=== PATIENT | female | born 1985 | race African-American/Black ===

== ENCOUNTER 2022-07-16 17:11 | Emergency (ER) | payer OTHER ==
[2022-07-16 17:33] VITALS: BP 127/81
[2022-07-16 17:47] LABS: RAPID STREP SCREEN Negative (Negative)
[2022-07-16] MEDS ORDERED: CHERRY SYRUP 10 ML UDC PO ONE (18:11)
[2022-07-16] MEDS ORDERED: DEXAMETHASONE 10 MG/ML VIAL PO STA (18:11)
--- NOTE | 2022-07-16 18:14 | ED Physician Documentation ---
History of Present Illness - Stated complaint Stated Complaint: THROAT PX/EAR PRESSURE - Chief complaint Chief Complaint: General - Additonal information Additional information: 36-year-old female presents emergency department for evaluation of a sore throat that began 3 days ago. No fevers. No cough or congestion. No dysphonia. No trismus. She has an uncomfortable sensation when swallowing. She went to a local walk-in clinic today where rapid strep, RSV and influenza were all negative. She was not assured by that visit therefore she presents here to the ER. Review of Systems Constitutional: denies: Fever Eyes: reports: Reviewed and negative Ears: denies: Loss of hearing, Ear pain Nose: denies: Rhinorrhea / runny nose, Congestion Throat: reports: Sore throat. denies: Dental pain / toothache Cardiac: reports: Reviewed and negative Respiratory: reports: Reviewed and negative GI: reports: Reviewed and negative : reports: Reviewed and negative PD PAST MEDICAL HISTORY - Present Medications Home Medications: Ambulatory Orders Medication Instructions Recorded Confirmed Cholecalciferol (Vitamin D3) 1,000 unit PO DAILY 07/16/22 07/16/22 [Vitamin D3] Ferrous Gluconate [Fergon] 324 mg PO DAILY 07/16/22 07/16/22 - Allergies Allergies/Adverse Reactions: Allergies Allergy/AdvReac Type Severity Reaction Status Date / Time No Known Drug Allergies Allergy Verified 07/16/22 17:24 PD ED PE NORMAL - General General: Alert and oriented X 3, No acute distress - HEENT HEENT: Atraumatic, Ears normal, Moist mucous membranes, Pharynx benign - Neck Neck: Supple, no meningeal sign. No: No adenopathy (1 mildly tender right anterior cervical lymph node.) - Cardiac Cardiac: RRR, No murmur - Respiratory Respiratory: Clear bilaterally - Abdomen Abdomen: Normal bowel sounds, Soft - Back Back: No CVA TTP, No spinal TTP - Derm Derm: Warm and dry Results - Vitals Vitals: Vital Signs - 24 hr 07/16/22 17:25 Temperature 37.4 C Heart Rate 116 H Respiratory 16 Rate Blood Pressure 127/81 H O2 Saturation 100 Oxygen O2 Source Room air - Labs Labs: Laboratory Tests 07/16/22 17:30 Group A Strep Rapid Negative PD Medical Decision Making - ED course Complexity details: reviewed results, considered differential, d/w patient ED course: This is a very well-appearing 36-year-old female that presents the emergency department for reassurance that there is nothing significantly wrong with her throat. She is seen a local walk-in clinic today for sore throat which she has had for 3 days. She tested negative for strep, RSV and influenza but she was not assured. She is wondering if she needs an endoscopy. On exam the patient appears anxious. She has however an unremarkable posterior oropharynx without erythema tonsillar exudate uvula deviation or soft palate asymmetry or swelling. She has normal phonation and swallow. I did find 1 mildly tender anterior cervical lymph node. Rapid strep is again negative. I discussed with patient likely etiology being viral. She does not feel Tylenol and ibuprofen has been helpful to control the pain therefore she will be given a single dose of Decadron. Clinically I have no suspicion for RPA or IT SERVICE MANAGER. She does not have any evidence to suggest an esophageal foreign body. Patient does admit to me that she is exceedingly anxious and her tries to keep her and the children very clean and avoid germs at all times. I discussed with patient the importance of allowing routine upper respiratory infections to run their course. I also discussed the usual emergent return precautions for worsening symptoms Departure - Departure Disposition: 01 Home, Self Care Clinical Impression: Sore throat (viral) Condition: Stable Record reviewed to determine appropriate education?: Yes Comments: Milla I suspect that your sore throat is simply due to a virus. Most of the time these run their course over about 3 to 7 days. You can gargle with warm salt water 2-3 times a day. I recommend you continue Tylenol and ibuprofen. You were given a single dose of Decadron here in the emergency department which is an anti-inflammatory which will help a lot with pain over the next 24 to 48 hours. We will notify you if your strep culture is positive but in general I expect that this will simply resolve over the next several days. Reasons to return to the emergency department would be the development of any inability to open your mouth, inability to tolerate your oral secretions or severe fevers.
--- NOTE | 2022-07-19 11:24 | ED Physician Documentation ---
ED Addendum - Addendum Addendum: 07/19/22 11:22 +group F strep on culture. will rx penicillin. sent to [facility]. Departure - Departure Disposition: 01 Home, Self Care Clinical Impression: Sore throat (viral) Condition: Stable Prescriptions: Penicillin V Potassium 500 mg PO Q6HR #40 tablet Comments: Milla I suspect that your sore throat is simply due to a virus. Most of the time these run their course over about 3 to 7 days. You can gargle with warm salt water 2-3 times a day. I recommend you continue Tylenol and ibuprofen. You were given a single dose of Decadron here in the emergency department which is an anti-inflammatory which will help a lot with pain over the next 24 to 48 hours. We will notify you if your strep culture is positive but in general I expect that this will simply resolve over the next several days. Reasons to return to the emergency department would be the development of any inability to open your mouth, inability to tolerate your oral secretions or severe fevers. Discharge Date/Time: 07/16/22 18:28
== END 2022-07-16 18:28 | disposition home or self-care (01) ==
LOC: ED 17:11
DX: J02.8 Acute pharyngitis due to other specified organisms (principal)
CPT/HCPCS: 87070; 87430; 99283; A9270

== ENCOUNTER 2023-04-21 19:08 | Outpatient (CLI) | payer OTHER ==
--- NOTE | 2023-04-22 21:11 | Ultrasound Report ---
PROCEDURE: Soft Tissue Head or Neck INDICATIONS: MASS TECHNIQUE: Real-time scanning was performed of the thyroid gland, with image documentation. COMPARISON: None FINDINGS: Right: Thyroid lobe measures 5.2 x 1.4 x 1.8 cm, and is homogeneous in echotexture. Left: Thyroid lobe measures 5 x 1.5 x 1.8 cm, and is homogenous in echotexture. Isthmus: 0.2 cm thick. Bilateral neck scattered nonenlarged lymph nodes with normal morphology. Nodule number: One Location: Right inferior Size: Less than 1 cm. Composition: Solid (2 points). Echogenicity: Isoechoic (1 point). Shape: wider than tall (0 points). Margins: Smooth (0 points). Echogenic foci: None (0 points). Total points: 3 ACR TI-RADS category: TI-RADS 3: Mildly suspicious. IMPRESSION: Right inferior thyroid nodule which is TIRADS 3. Based on size, no additional follow-up needed. ACR TI-RADS definitions and recommendations: TI-RADS 1 (benign): 0 points. FNA not needed. TI-RADS 2 (not suspicious): 2 points. FNA not needed. TI-RADS 3 (mildly suspicious): 3 points. "FNA if 2.5 cm or larger, follow up if 1.5 cm or larger (at 1, 3, and 5 years). TI-RADS 4 (moderately suspicious): 4-6 points. "FNA if 1.5 cm or larger, follow up if 1 cm or larger (at 1, 2, 3, and 5 years). TI-RADS 5 (highly suspicious): 7 points or more. "FNA if 1 cm or larger, follow up if 0.5 cm or larger (every year for 5 years). Reviewed by: Francisco Lazcano MD on 04/22/2023 9:10 PM PST Approved by: Francisco Lazcano MD on 04/22/2023 9:10 PM PST Station ID: [id number]
== END 2023-04-21 19:09 | disposition home or self-care (01) ==
LOC: DI 19:08
PROVIDERS: ATTEND Nurse Practitioner Family
DX: M54.2 Cervicalgia (principal); E04.1 Nontoxic single thyroid nodule

== ENCOUNTER 2023-10-04 13:21 | Emergency (ER) | payer OTHER, MEDICAID ==
[2023-10-04 13:38] VITALS: BP 134/77; O2SAT 100
[2023-10-04 14:01] LABS: BASOPHILS % (AUTO) 0.5 %; EOSINOPHILS # (AUTO) 0.1 10^3/uL (0.0-0.7); EOSINOPHILS % (AUTO) 0.8 %; HCT - HEMATOCRIT 37.6 % (37.0-47.0); HGB - HEMOGLOBIN 11.4 g/dL (12.0-16.0); LYMPHOCYTES % (AUTO) 34.4 %; MEAN CORPUSCULAR HEMOGLOBIN 23.1 pg (27.0-31.0); MEAN CORPUSCULAR HGB CONC 30.3 g/dL (32.0-36.0); MEAN CORPUSCULAR VOLUME 76.3 fL (81.0-99.0); MEAN PLATELET VOLUME 8.7 fL (7.9-10.8); MONOCYTES # (AUTO) 0.5 10^3/uL (0.0-1.0); MONOCYTES % (AUTO) 8.3 %; NEUTROPHILS # (AUTO) 3.3 10^3/uL (1.5-6.6); NEUTROPHILS % (AUTO) 55.8 %; PLT - PLATELET COUNT 239 10^3/uL (130-450); RED BLOOD COUNT 4.93 10^6/uL (4.20-5.40); RED CELL DISTRIBUTION WIDTH 13.2 % (12.0-15.0); WHITE BLOOD COUNT 5.9 x10^3/uL (4.8-10.8)
--- NOTE | 2023-10-04 14:14 | ED Physician Documentation ---
History of Present Illness - Stated complaint Stated Complaint: PELVIC/BACK PX - Chief complaint Chief Complaint: Back Pain - History obtained from History obtained from: Patient - Additonal information Additional information: 37-year-old with history of 1 . For the last week she has had intermittent pelvic cramping radiating to the back with slight spotting. PD PAST MEDICAL HISTORY - Past Medical History Past Medical History: No Cardiovascular: None Respiratory: None Neuro: None Endocrine/Autoimmune: None GI: None INSURANCE ADJUSTER: None : None HEENT: None Psych: None Musculoskeletal: None Derm: None - Past Surgical History Past Surgical History: Yes General: Appendectomy /INSURANCE ADJUSTER: section - Present Medications Home Medications: Ambulatory Orders Medication Instructions Recorded Confirmed No Known Home Medications 10/04/23 10/04/23 - Allergies Allergies/Adverse Reactions: Allergies Allergy/AdvReac Type Severity Reaction Status Date / Time No Known Drug Allergies Allergy Verified 10/04/23 14:12 - Social History Does the pt smoke?: No Smoking Status: Never smoker Does the pt drink ETOH?: No Does the pt have substance abuse?: No - Immunizations Immunizations are current?: Yes - POLST Patient has POLST: No PD ED PE NORMAL - Vitals Vital signs reviewed: Yes - General General: Alert and oriented X 3, No acute distress - Abdomen Abdomen: Other (Mild pelvic tenderness, no surgical signs) - Back Back: No CVA TTP Results - Vitals Vitals: Vital Signs - 24 hr 10/04/23 13:22 Temperature 36.9 C Heart Rate 80 Respiratory 16 Rate Blood Pressure 134/77 H O2 Saturation 100 Oxygen O2 Source Room air - Labs Labs: Laboratory Tests 10/04/23 10/04/23 10/04/23 13:37 13:53 13:53 WBC 5.9 RBC 4.93 Hgb 11.4 L Hct 37.6 MCV 76.3 L MCH 23.1 L MCHC 30.3 L RDW 13.2 Plt Count 239 MPV 8.7 Neut # (Auto) 3.3 Lymph # (Auto) 2.0 Hardin # (Auto) 0.5 Eos # (Auto) 0.1 Baso # (Auto) 0.0 Absolute Nucleated RBC 0.00 Nucleated RBC % 0.0 Sodium 135 Potassium 4.4 Chloride 103 Carbon Dioxide 27 Anion Gap 5.0 L BUN 6 Creatinine 0.5 L Estimated GFR (MDRD) 170 Glucose 88 Calcium 9.9 Total Bilirubin 0.6 AST 15 ALT 9 L Alkaline Phosphatase 47 Total Protein 7.9 Albumin 4.3 Globulin 3.6 Albumin/Globulin Ratio 1.2 Lipase 31 Beta HCG, Quant 055855.0 Urine Color YELLOW Urine Clarity CLEAR Urine pH 7.0 Ur Specific [place] <=1.005 Urine Protein NEGATIVE Urine Glucose (UA) NEGATIVE Urine Ketones NEGATIVE Urine Occult Blood NEGATIVE Urine Nitrite NEGATIVE Urine Bilirubin NEGATIVE Urine Urobilinogen 0.2 (NORMAL) Ur Leukocyte Esterase NEGATIVE Ur Microscopic Review NOT INDICATED Urine Culture Comments NOT INDICATED Blood Type 10/04/23 13:53 WBC RBC Hgb Hct MCV MCH MCHC RDW Plt Count MPV Neut # (Auto) Lymph # (Auto) Hardin # (Auto) Eos # (Auto) Baso # (Auto) Absolute Nucleated RBC Nucleated RBC % Sodium Potassium Chloride Carbon Dioxide Anion Gap BUN Creatinine Estimated GFR (MDRD) Glucose Calcium Total Bilirubin AST ALT Alkaline Phosphatase Total Protein Albumin Globulin Albumin/Globulin Ratio Lipase Beta HCG, Quant Urine Color Urine Clarity Urine pH Ur Specific [place] Urine Protein Urine Glucose (UA) Urine Ketones Urine Occult Blood Urine Nitrite Urine Bilirubin Urine Urobilinogen Ur Leukocyte Esterase Ur Microscopic Review Urine Culture Comments Blood Type O POSITIVE PD Medical Decision Making - ED course ED course: She presents for pelvic pain in with the usual differential including miscarriage, normal symptoms, ectopic . Workup in the emergency department shows that she is unremarkable CBC and CMP with beta-hCG of 181,000. Urinalysis normal/negative and prelim report from bookkeepers supervisor showing that she has a viable twin . She has had twins before and was not sure whether the news was good or not initially. Departure - Departure Disposition: 01 Home, Self Care Clinical Impression: Pelvic pain affecting Qualifiers: Trimester: first trimester Qualified Code(s): O26.891 - Other specified related conditions, first trimester; R10.2 - Pelvic and perineal pain Twin gestation in first trimester Qualifiers: Multiple gestation type: unspecified Qualified Code(s): O30.001 - Twin , unspecified number of placenta and unspecified number of amniotic sacs, first trimester Condition: Good Record reviewed to determine appropriate education?: Yes Instructions: ED Preg Established Normal Sxs [facility]: [facility] [Provider Group] Comments: As discussed, today it appears that you have viable twin pregnancies. Follow-[facility] with [facility] as per routine. Return for new or worsening symptoms.
[2023-10-04 14:22] LABS: BILIRUBIN,URINE NEGATIVE (NEGATIVE); GLUCOSE, URINE (UA) NEGATIVE (NEGATIVE); KETONES,URINE (UA) NEGATIVE (NEGATIVE); LEUKOCYTE ESTERASE, URINE NEGATIVE (NEGATIVE); NITRITE,URINE NEGATIVE (NEGATIVE); OCCULT BLOOD,URINE NEGATIVE (NEGATIVE); PROTEIN,URINE NEGATIVE (NEGATIVE); UROBILINOGEN,URINE 0.2 (NORMAL) E.U./dL (NORMAL)
[2023-10-04 14:23] LABS: CLARITY,URINE CLEAR (CLEAR)
[2023-10-04 14:23] LABS: ALBUMIN 4.3 g/dL (3.2-5.5); ALBUMIN/GLOBULIN RATIO 1.2 (1.0-2.2); BILIRUBIN,TOTAL 0.6 mg/dL (0.2-1.0); CALCIUM 9.9 mg/dL (8.5-10.3); CREATININE 0.5 mg/dL (0.6-1.3); POTASSIUM 4.4 mmol/L (3.5-4.5); TOTAL PROTEIN 7.9 g/dL (6.4-8.9)
--- NOTE | 2023-10-04 17:20 | Ultrasound Report ---
PROCEDURE: OB 1st Trimester w/TV INDICATIONS: 6 w pelvic pain OUTSIDE/PRIOR DATING DATA: Last menstrual period (LMP): 08/19/2023. LMP-based estimated date of delivery (MARION): 05/25/2024. First dating scan (date and location): Today. MARION estimated at 05/26/2024 TECHNIQUE: Real-time scanning was performed of the fetus and maternal pelvic organs, with image documentation. Endovaginal scanning was also performed to better visualize the fetus and maternal ovaries. COMPARISON: None. FINDINGS: Suspected dichorionic diamniotic . Fetus A crown-rump length is 0.62 cm, ultrasound age is 6 weeks and 3 days. Yolk sac is seen. heart motion at a rate of 123 bpm. Fetus B crown-rump length is 0.58 cm, ultrasound age of 6 weeks and 3 days. Yolk sac is seen. heart motion at a rate of 115 bpm. Incidentally noted possible left uterine fibroid measuring 1.9 x 1.7 cm. Unremarkable adnexal structures. IMPRESSION: Suspected dichorionic diamniotic living twin . Arma-rump length suggests ultrasound age of 6 weeks and 3 days from both fetuses. Reviewed by: Cliff Rios MD on 10/04/2023 5:19 PM PDT Approved by: Cliff Rios MD on 10/04/2023 5:19 PM PDT Station ID: [id number]
== END 2023-10-04 15:10 | disposition home or self-care (01) ==
LOC: ED 13:21
DX: O26.891 Other specified pregnancy related conditions, first trimester (principal); Z3A.01 Less than 8 weeks gestation of pregnancy; R10.2 Pelvic and perineal pain; O30.001 Twin pregnancy, unspecified number of placenta and unspecified number of amniotic sacs, first trimester; O09.521 Supervision of elderly multigravida, first trimester; O34.219 Maternal care for unspecified type scar from previous cesarean delivery
CPT/HCPCS: 36415; 80053; 81001; 81003; 83690; 84702; 85025; 86900; 86901; 87086; 99283; 99284